=== PATIENT | female | born 1985 | race Caucasian/White ===

== ENCOUNTER 2016-09-19 17:30 | Emergency (ER) | payer SELFPAY ==
--- NOTE | 2016-09-19 19:20 | ED Physician Chart ---
Chief Complaint/HPI - Patient Information Date Seen:: 09/19/16 Time Seen:: 19:00 Chief Complaint:: fever and abdominal pain History of Present Illness:: Patient has had fever, epigastric pain and dizziness for the last 2 days. Temperature has been up to 102.7. She's had no vomiting or diarrhea. The abdominal pain is burning in nature and worse when she tries to eat. Patient has had no upper respiratory tract infection or cough recently. Allergies:: Allergies Allergy/AdvReac Type Severity Reaction Status Date / Time No Known Allergies Allergy Verified 03/13/16 21:14 Historian:: Patient Review:: Nurse's Note Reviewed Review of Systems - Review of Systems General/Constitutional: Fever Skin: No skin lesions Head: No headache Eyes: No loss of vision ENT: No earache Neck: No neck pain Cardio Vascular: No chest pain Pulmonary: No SOB GI: Pain G/U: No dysuria, No frequency, No nacturia Musculoskeletal: No bone or joint pain, No muscle pain Endocrine: No polyuria, No polydipsia Psychiatric: No prior psych history Hematopoietic: No bruising Allergic/Immuno: No urticaria Neurological: No syncope Past Medical History - Past Medical History Past Medical History: No significant medical hx Family History: Diabetes Melitus Social History: Non Smoker, No Alcohol Surgical History: other (tubal ligation; section) Psychiatricy History: None Medication: None Family Medical History - Family Member Grandmother History Unknown: Yes Ethnicity: Living Status: Still Living Hx Family Hypertension: Yes Hx Family Diabetes: Yes Mother History Unknown: Yes Hx Family Hypertension: Yes Hx Family Diabetes: Yes ED Septic Shock - . Is Septic Shock (SBP<90, OR Lactate>4 mmol\L) present?: No Reassessment (Disposition) - Reassessment Reassessment Condition:: Unchanged - Diagnosis Diagnosis:: gastritis - Patient Disposition Discharge/Transfer:: Home Condition at Disposition:: Stable, Unchanged ED Discharge Plan - Patient Disposition Admit/Discharge/Transfer: PATIENT ELOPED
== END 2016-09-19 17:37 | disposition left against medical advice (07) ==
LOC: ER 17:30
DX: K29.70 Gastritis, unspecified, without bleeding (principal)
CPT/HCPCS: Z7502